=== PATIENT | female | born 1985 | race Hispanic/Latino ===

== ENCOUNTER 2018-07-23 19:44 | Emergency (ER) | payer MEDICAID ==
[2018-07-23 20:31] VITALS: BP 135/75; PULSE 63; RESP 16; TEMP 98.5; O2SAT 98
--- NOTE | 2018-07-23 21:39 | ED PDOC ---
HPI: Trauma/Fall - HPI Time Seen by Provider: 07/23/18 20:38 Chief Complaint (Nursing): Trauma Chief Complaint (Provider): Trauma History Per: Patient History/Exam Limitations: no limitations Additional Complaint(s): 32 y/o female presents to the ED complaining with left hand pain after tripping over a small concrete wall today. Patient states that about 2pm today she was walking with her family and accidentally tripped over small wall on the sidewalk falling on to her left side of hand. Patient reports taking 2 Ibuprofen 3pm today but continue but continue to have worsen pain and swelling so decided to come to the ER for evaluation. Patient is unable to remove her wedding band due to swelling. PMD: NONE PROVIDED Past Medical History Reviewed: Historical Data, Nursing Documentation, Vital Signs Vital Signs: Last Vital Signs Temp 98.5 F 07/23/18 20:30 Pulse 63 07/23/18 20:30 Resp 16 07/23/18 20:30 BP 135/75 07/23/18 20:30 Pulse Ox 98 07/23/18 20:30 - Family History Family History: States: Unknown Family Hx - Home Medications Home Medications: Ambulatory Orders Medication Instructions Recorded Ibuprofen [Motrin Tab] 800 mg PO Q6 PRN 7 Days tab 07/23/18 - Allergies Allergies/Adverse Reactions: Allergies Allergy/AdvReac Type Severity Reaction Status Date / Time codeine Allergy NAUSEA Verified 07/23/18 20:29 Review of Systems Musculoskeletal: Positive for: Hand Pain Physical Exam - Reviewed Nursing Documentation Reviewed: Yes Vital Signs Reviewed: Yes - Physical Exam Appears: Positive for: Uncomfortable Pulses-Radial (L): 2+ Extremity: Positive for: Normal ROM (flex and extension on left wrist. ), Tenderness (palpation at the base of left 4th and 5th digit. ), Capillary Refill (less than 2 seconds), Swelling, Other ((+) Left hand ecchymosis over 4th and 5th.) Neurological/Psych: Positive for: Awake, Alert, Oriented - ECG O2 Sat by Pulse Oximetry: 98 Medical Decision Making Medical Decision Making: Time:2048 Initial Impression: Initial Plan: -Urine -Ibuprofen 600mg PO -Left hand X-ray - Left 4th digit ring removed using surgery lube and was successful. Will give ice pack. 21:30: hand x-ray read by me with ?fracture at base of 5th metacarpal. Sent to [facility] for official read. Official Left hand x-ray read: No acute osseous abnormality. No acute fracture or dislocation. Patient's pain has improved somewhat. CONNIE bandage placed to Left hand. Stable for d/c home. Pt advised to not replace ring on left hand until swelling resolves. Scribe Attestation: Documented by Angelica Sousa, acting as a scribe for Zita Stern. Provider Scribe Attestation: All medical record entries made by the Scribe were at my direction and personally dictated by me. I have reviewed the chart and agree that the record accurately reflects my personal performance of the history, physical exam, medical decision making, and the department course for this patient. I have also personally directed, reviewed, and agree with the discharge instructions and disposition. Disposition - Clinical Impression Clinical Impression: Hand sprain - Patient ED Disposition Is Patient to be Admitted: No Counseled Patient/Family Regarding: Studies Performed, Diagnosis, Need For Followup, Rx Given - Disposition Disposition: Routine/Home Disposition Time: 22:40 Condition: STABLE Additional Instructions: Keep placing ice on left hand for the next 24hrs every few hours for 20min at a time. Use CONNIE bandage for comfort and avoid using your hand until pain improves. Take Ibuprofen for pain. Prescriptions: Ibuprofen [Motrin Tab] 800 mg PO Q6 PRN 7 Days tab PRN Reason: Pain, Moderate (4-7) Instructions: Hand Pain (DC) Forms: [employer] (Kittitian) Print Language: SLOVENIAN
--- NOTE | 2018-07-24 13:11 | RAD ---
Date of service: 07/23/2018 PROCEDURE: Left small finger radiographs. HISTORY: fall onto left hand, pain and swelling COMPARISON: None. TECHNIQUE: AP radiograph of the left hand, as well as spot oblique and lateral images of left small finger were obtained. 4 views obtained. FINDINGS: LEFT SMALL FINGER: Left small finger normal, without fracture of focal lesion. Remainder of the left hand (as seen on the AP view) is grossly unremarkable. JOINTS: Normal. SOFT TISSUES: Normal. OTHER FINDINGS: None. IMPRESSION: No acute findings related to/ accounting for the clinical presentation. Concordant findings (preliminary report) provided by [facility].
== END 2018-07-23 22:45 | disposition home or self-care (01) ==
LOC: H.ER 19:44
DX: S63.92XA Sprain of unspecified part of left wrist and hand, initial encounter (principal); Y92.480 Sidewalk as the place of occurrence of the external cause; Y93.01 Activity, walking, marching and hiking; W01.0XXA Fall on same level from slipping, tripping and stumbling without subsequent striking against object, initial encounter